=== PATIENT | female | born 1995 ===

== ENCOUNTER 2018-11-26 05:55 | Inpatient (IN) | payer MEDICAID ==
[2018-11-26 06:18] VITALS: BMI 26.9
[2018-11-26] MEDS ORDERED: Lactated Ringer's 1,000 ML IV ONE (06:57)
[2018-11-26] MEDS ORDERED: Lactated Ringer's 1,000 ML IV SCH (07:00)
--- NOTE | 2018-11-26 07:17 | OBHP ---
Datetime: 11/26/2018 06:58 IP Adm Impression: Term, intrauterine ; Active labor; Ruptured Membranes IP Admit Plan: Admit to unit; Initiate labor protocol Admit Comment, IP Provider: TERESA ID [id number] 23 y.o. LMP unsure, KHANG 12/07/18, EGA 38w 3d, SROM 2215 hours 11/25/18, onset of Ctx 0500 ho urs, pain scale 10/10. (+) AFM, denies VB. care: [facility], no issues P Ob: x 2: 2011, male, 6lb; 2012, female, 7lb, both in [facility], no complications. 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 No h/o STIs PMH: denies PSH: denies NKDA Meds: PNV Soc Hx: denies tobacco, illicit drug or EtOH use. With FOB x 5 years; (+) cohabitation. Children i n [facility]. Children in [facility]. Unemployed Fam Hx: Mother alive 48 h/o headaches. Father due to "accident" . No fam h/o cancer P.E.: as above. WD in NAD. Awake, alert, oriented to time, person and place. Pleasant and cooperat glenn Assessment: 23 y.o. P2, 38w 3d, SROM, nearing end of Stage 1 of labor. GBS (-). CAtegory 1 tracing . Clinically stable. Plan: 1) Admit 2) NPO 3) IVFs. 4) Admission labs 5) Continuous EFM 6) Anticipate vaginal delivery - case endorsed to incoming Attending Pelvic Type - PN: Adequate Extremities - PN: Normal Abdomen - PN: Normal Back - PN: Normal Breast - PN: Not Done Lungs - PN: Normal Heart - PN: Normal Thyroid - PN: Not Done Neurologic - PN: Normal HEENT - PN: Normal General - PN: Normal FHR - Baseline A Provider: 135 Contraction Comments Provider: 3 Comments, ACOG Physical Exam: Perinuem: wet SSE: (+) pooling; (+) nitrazine Abdomen: Gravid. Firm with contractions. Fundal height 38 cm All other systems reviewed and are negative Gestation - Est Wks by US: 38w 3d IP Hx Assessment: The History has been Reviewed and is Current EGA AdmitDate IP: 38.3 Vital Signs Provider: Reviewed IP Indication for Induction: Not Applicable IP Chief Complaint: Uterine contractions; Suspected ruptured membranes NICHD Variability Prov Fetus A: Moderate 6-25bpm NICHD Accel Fetus A IP Provider: 15X15 FHR Category Provider Fetus A: Category I NICHD Decel Fetus A IP Provider: None Dilatation, Provider: 8 Effacement, Provider: 90 Station, Provider: 0 Genitourinary Exam: Normal DTRs - PN: Not Done
[2018-11-26] MEDS ORDERED: Oxytocin 30 UNIT in NS 500 ml 30 UNITS/500 ML BAG IV SCH (07:45)
[2018-11-26 07:55] LABS: BASO # 0.1 K/uL (0.0-0.2); BASO % 1.4 % (0.0-2.0); EOS # 0.1 K/uL (0.0-0.7); HEMOGLOBIN 9.7 g/dL (11.0-16.0); LYMPH # 2.3 K/uL (1.0-4.3); MEAN CELL VOLUME 71.9 fL (81.0-99.0); MEAN CORPUSCULAR HEMOGLOBIN 23.9 pg (27.0-31.0); MEAN CORPUSCULAR HGB CONC 33.2 g/dL (33.0-37.0); MEAN PLATELET VOLUME 10.2 fL (7.2-11.7); MONO # 0.5 K/uL (0.0-0.8); MONO % 6.6 % (0.0-10.0); NEUT # 3.9 K/uL (1.8-7.0); NRBC % 0.3 % (0.0-2.0); RBC 4.07 Mil/uL (3.80-5.20); RED CELL DISTRIBUTION WIDTH 16.1 % (11.5-14.5); WHITE BLOOD COUNT 6.8 K/uL (4.8-10.8)
[2018-11-26] MEDS ORDERED: Oxytocin 30 UNIT in NS 500 ml 30 UNITS/500 ML BAG IV ONE (07:57)
[2018-11-26 08:12] LABS: ALB/GLOB RATIO 1.3 (1.0-2.1); ALBUMIN 3.8 g/dL (3.5-5.0); ALT/SGPT 27 U/L (9-52); AST/SGOT 43 U/L (14-36); BLOOD UREA NITROGEN 13 mg/dL (7-17); CALCIUM 8.5 mg/dl (8.6-10.4); GFR NON-AFRICAN AMERICAN > 60
[2018-11-26 08:21] LABS: SQUAMOUS EPITHIAL 1 /hpf (0-5); URINE BILIRUBIN NEGATIVE (NEGATIVE); URINE BLOOD NEGATIVE (NEGATIVE); URINE CLARITY Hazy (Clear); URINE COLOR Yellow (YELLOW); URINE GLUCOSE (UA) NORMAL (Normal); URINE LEUKOCYTE ESTERASE NEG Leu/uL (Negative); URINE PROTEIN NEGATIVE (NEGATIVE); URINE UROBILINOGEN NORMAL mg/dL (0.2-1.0)
[2018-11-26] MEDS ORDERED: Bupivacaine HCl/FentaNYL Cit 100 ML EPI ONE (08:38)
--- NOTE | 2018-11-26 09:14 | OBPN ---
Datetime: 11/26/2018 07:58 IP Progress Impression: Normal progression of labor; Reassuring heart rate; Rupture of membran es IP Informed Consent Obtain: Vaginal Delivery IP Procedures: Sterile Vag Exam IP Progress Plan: Augmentation Membranes, Provider: Ruptured FHR - Baseline A Provider: 130 Gestation - Est Wks by US: 38.3 Presentation-Admit: Vertex IP Progress Note Comment: Patient was seen and examined at bedside in no acute distress SVE: 9cm/80%/-2 Pitocin Aditya t 2mUNITS initiated Anticipate vaginal delivery Requesting an epidural and counseling done and Anesthesia notified All plans and management as per Dr. Bryson Norman, DO, PGY 2 Vital Signs Provider: Reviewed; Within Normal Limits NICHD Accel Fetus A IP Provider: 10X10 FHR Category Provider Fetus A: Category I NICHD Variability Prov Fetus A: Moderate 6-25bpm Dilatation, Provider: 9 Effacement, Provider: 80 Station, Provider: -2 NICHD Decel Fetus A IP Provider: None Datetime: 11/26/2018 06:58 Contraction Comments Provider: 3
[2018-11-26] MEDS ORDERED: Oxycodone/Acetaminophen 5/325 mg Tab PO PRN (11:19)
--- NOTE | 2018-11-26 11:49 | OBPN ---
Datetime: 11/26/2018 10:10 IP Progress Impression: Normal progression of labor IP Procedures: Sterile Vag Exam IP Progress Plan: Anticipate Vaginal Delivery FHR - Baseline A Provider: 120 Gestation - Est Wks by US: 38.3 Presentation-Admit: Vertex IP Progress Note Comment: Patient was seen and examined at bedside in no acute distress SVE: /+1 Patient has sensation of rectal pressure and requesting to push Will start pushing Continue to anticipate vaginal delivery All plans and management discussed with Dr. Bryson Norman DO, PGY 2 Vital Signs Provider: Reviewed; Within Normal Limits NICHD Variability Prov Fetus A: Moderate 6-25bpm Dilatation, Provider: 10 Effacement, Provider: 100 Station, Provider: 1
--- NOTE | 2018-11-26 11:51 | OBDS ---
DELIVERY PERSONNEL Delivery Doctor: Donavon Massey DO Box Annealer: MARQUISE Latham Anesthesiologist: Dr Seo Resident: Dr. Ly MATERNAL INFORMATION Delivery Anesthesia: Epidural Medications in Delivery: pitocin Estimated Blood Loss (ml): 200 Placenta Cultured: No Provider Comments: This is a 23 year old now , who delivered a viable female via over an intact perineum on 11/26/18 at 10:58. Aminotic fluid was clear. Patient had been ruptured sinc e 22:00pm (11/25/18) The infant's head was delivered in a controlled manner presenting in AMIRAH. Loose N uchal cord was noted X1 and was reduced without difficulty. The infant's shoulders and body were deli anthony atraumatically, and bulb syringe was utilized to suction the Naso and Oropharynx The cord was c lamped. The 's was placed on mom's belly and handed to the nursery nurse. Cord blood and cord g ases were collected and sent to lab. An intact placenta with 3VC was delivered with IV pitocin and fu ndal massage. EBL was 200ml. The weighed 7lbs 11oz with APGARS of 9 and 9. Mom and baby are re covering in stable condition. All instrument and sponge counts were correct X2. Attending, Dr. Massey , and present throughtout the procedure. Resident (Kami Norman) and 3rd year medical studeny ( Roberto Kaba) were presents and participated in the delivery. Kami Norman DO, PGY 2 LABOR SUMMARY EDC: 12/07/2018 00:00 No. Babies in Womb: 1 Attempted: No Labor Anesthesia: Epidural LABOR INFORMATION Onset of Labor: 11/25/2018 22:00 Complete Dilatation: 11/26/2018 10:10 Oxytocin: Augmentation Group B Beta Strep: Negative (Annotations: 11/07/2018) Steroids Given: None Reason Steroids Not Administered: Not Applicable MEMBRANES Membranes Rupture Method: Spontaneous Rupture of Membranes: 11/25/2018 22:00 Length of Rupture (hrs): 12.97 Amniotic Fluid Color: Clear Amniotic Fluid Amount: Small Amniotic Fluid Odor: Normal STAGES OF LABOR Stage 1 hrs: 12 Stage 1 min: 10 Stage 2 hrs: 0 Stage 2 min: 48 Stage 3 hrs: 0 Stage 3 min: 5 Total Time in Labor hrs: 13 Total Time in Labor min: 3 VAGINAL DELIVERY Episiotomy: None Laceration Extension: N/A Laceration Type: None Laceration Repair: Not Applicable Initial Vag Sponge Count: 10 Final Vag Sponge Count: 10 Initial Vag Sharps Count: 0 Final Vag Sharps Count: 0 Sponge Count Correct: Yes Sharps Count Correct: N/A BABY A INFORMATION Infant Delivery Date/Time: 11/26/2018 10:58 Method of Delivery: Vaginal Born in Route : No : N/A Forceps: N/A Vacuum Extraction: N/A Shoulder Dystocia : No SHOULDER DYSTOCIA BABY A Infant Delivery Date/Time: 11/26/2018 10:58 PRESENTATION/POSITION BABY A Presentation: Cephalic Cephalic Presentation: Vertex Breech Presentation: N/A PLACENTA INFORMATION BABY A Placenta Delivery Time : 11/26/2018 11:03 Placenta Method of Delivery: Spontaneous Placenta Status: Delivered SCORES BABY A Heart Rate 1 min: >100 bpm Resp Effort 1 min: Good Cry Reflex Irritability 1 min: Cough or Sneeze or Pulls Away Muscle Tone 1 min: Active Motion Color 1 min: Body [place], Extremities Blue Resuscitation Effort 1 min: Tactile Stimulation SCORE 1 MIN: 9 Heart Rate 5 min: >100 bpm Resp Effort 5 min: Good Cry Reflex Irritability 5 min: Cough or Sneeze or Pulls Away Muscle Tone 5 min: Active Motion Color 5 min: Body [place], Extremities Blue Resuscitation Effort 5 min: Tactile Stimulation SCORE 5 MIN: 9 INFORMATION BABY A Gestational Age at Delivery: 38.3 Gestational Status: Term Infant Outcome : Liveborn Infant Condition : Stable Sex: Female IDENTIFICATION/MEDS BABY A ID Band Number: [id number] ID Band Location: Left Leg; Left Arm Sensor Applied: Yes Sensor Number: [id number] Sensor Location : Cord Clamp Vitamin K Given : Aquamephyton 0.5 mg IM; Left Thigh Erythromycin Given: Given Both Eyes WEIGHT/LENGTH BABY A Infant Birthweight (gms): 3475 Weight (lb): 7 Weight (oz): 11 Length Inches: 19.50 Length cms: 49.5 CORD INFORMATION BABY A No. Cord Vessels: 3 Nuchal Cord : Around Neck x1, Loose Cord Blood Taken: Yes Infant Suction: Mouth; Nose ASSESSMENT BABY A Infant Complications: None Physical Findings at Delivery: Within Normal Limits Infant Respirations: Appears Normal Office Machine Mechanic/ALS Called : No Infant Care By: MARQUISE Hollingsworth Transferred To: Remains with Mother
[2018-11-26] MEDS: Benzocaine/Menthol 20%-0.5% Topical Spray (60 ml) TOP PRN (20:51)
[2018-11-27 08:15] LABS: BASO % 0.4 % (0.0-2.0); EOS # 0.1 K/uL (0.0-0.7); EOS % 1.1 % (0.0-4.0); HEMOGLOBIN 8.2 g/dL (11.0-16.0); LYMPH # 2.5 K/uL (1.0-4.3); LYMPH % 27.6 % (20.0-40.0); MEAN CELL VOLUME 71.6 fL (81.0-99.0); MEAN CORPUSCULAR HEMOGLOBIN 23.8 pg (27.0-31.0); MEAN CORPUSCULAR HGB CONC 33.3 g/dL (33.0-37.0); MEAN PLATELET VOLUME 9.4 fL (7.2-11.7); MONO # 0.6 K/uL (0.0-0.8); MONO % 6.1 % (0.0-10.0); NEUT # 5.9 K/uL (1.8-7.0); NEUT % 64.8 % (50.0-75.0); NRBC % 0.1 % (0.0-2.0); RBC 3.45 Mil/uL (3.80-5.20); RED CELL DISTRIBUTION WIDTH 16.2 % (11.5-14.5); WHITE BLOOD COUNT 9.1 K/uL (4.8-10.8)
[2018-11-27] MEDS: Multiple Vitamins Tab PO SCH (10:27)
[2018-11-27] MEDS: Benzocaine/Menthol 20%-0.5% Topical Spray (60 ml) TOP PRN ×2 (12:20→18:07)
--- NOTE | 2018-11-27 22:40 | OBPPN ---
Datetime: 11/27/2018 10:27 PP Pain Prov: Within normal limits PP Nausea Prov: Denies PP Flatus Prov: Yes PP BM Prov: Yes PP Heart Prov: Normal PP Lungs Prov: Normal PP Abdomen/Uterus Prov: Normal PP Extremities Prov: Normal PP C/S Incision Prov: Not Applicable PP Progress Prov: Normal PP Impression Prov: Normal progression PP Plan Prov: Continue present management PP Progress Note Prov: 23F s/p without complications and EBL 200mL, PPD #1. She was seen an d examined at bedside. No acute overnight events. She states her pain is well controlled with ibuprof en. She is ambulating and eating well. She had a BM yesterday, and is voiding well. She admits to vitaly e vaginal bleeding, using 2 pads within 3 hrs. She is only, with normal progress. She d enies fever/chills, CP, SOB, nausea, vomiting, constipation, diarrhea, or calf pain. Objective Vitals Tmax 98.8, BP 95/56, HR 63 Physical Exam: Gen: well appearing, NAD Heart: normal s1 s2, RRR, no murmurs Lung: CTA bilateral, no wheezes/rhonchi/rales Abdomen: nontender, fundal height 1-2 finger breadths below level of umbilicus Extr: no swelling or tenderness Labs: Hgb 8.2 Hct 24.7 Assessment/Plan 23F s/p , PPD#1, with chronic anemia, who is afebrile with hemodynamically stable -continue to monitor H/H -po ferrous sulfate BID -continue oral hydration and ambulation IP PP Procedures: None Vital Signs Provider PP: Reviewed; Within Normal Limits
[2018-11-28 00:14] VITALS: O2SAT 98
[2018-11-28] MEDS: Multiple Vitamins Tab PO SCH (09:08)
[2018-11-28 10:59] VITALS: BP 103/62; PULSE 58; RESP 18; TEMP 98.9
--- NOTE | 2018-11-28 19:32 | OBPPN ---
Datetime: 11/28/2018 07:41 PP Pain Prov: Within normal limits PP Nausea Prov: Denies PP Flatus Prov: Yes PP BM Prov: Yes PP Breasts Prov: Normal PP Heart Prov: Normal PP Lungs Prov: Normal PP Abdomen/Uterus Prov: Normal PP Lochia Prov: Normal PP Vulva/Perineum Prov: Normal PP CVA Tenderness Prov: Normal PP Extremities Prov: Normal PP C/S Incision Prov: Not Applicable PP Progress Prov: Normal PP Impression Prov: Normal progression PP Plan Prov: Continue present management; Discharge PP Progress Note Prov: 23F s/p , PPD #2. Patient was seen and examined at bedside. No acute overnight events. She states her pain is well controlled on ibuprofen. She is voiding, passing gas, a nd having regular BMs. She is ambulating and hydrating well. She is without problems. S he reports mild vaginal bleeding, using 3 pads in the past day. She denies fever, chills, dizziness, nausea, vomiting, constipation, or calf pain. Vitals: T 97.4 BP 97/64 HR 65 Physical Exam: Assessment/Plan 23F s/p , PPD#2 who is hemodynamically stable -continue po iron supplement, ferrous sulfate 325mg -plan for discharge IP PP Procedures: None Vital Signs Provider PP: Reviewed
--- NOTE | 2018-11-28 19:34 | OBDCSUM ---
Datetime: 11/28/2018 08:26 Discharged to, Provider: Home Follow up at, Provider: [facility] Disch Instr Activity: Normal activity Disch Instr Diet: Regular Discharge Instructions, Provider: Routine instructions given Discharge Diagnosis, Provider: Term Delivered Discharge Time: 11/28/2018 17:30 Follow up in weeks, Provider: 6 weeks Disch Referrals: None Contraception discussed, Prov: Yes Disch Activity Restrictions: No lifting; Minimize stair-climbing; No sexual activity; Nothing in vag regino - [place], tampons, douche Discharge Comment, Provider: 23F s/p , PPD #2. Patient was seen and examined at bedside. No acute overnight events. She states her pain is well controlled on ibuprofen. She is voiding, passing gas, and having regular BMs. She is ambulating and hydrating well. She is without probl ems. She reports mild vaginal bleeding, using 3 pads in the past day. She denies fever, chills, dizzi ness, nausea, vomiting, constipation, or calf pain. Vitals: T 97.4 BP 97/64 HR 65 Physical Exam: Assessment/Plan 23F s/p , PPD#2 who is hemodynamically stable -continue po iron supplement, ferrous sulfate 325mg -D/C home with instructions and Rx for Motrin. -Satisfactory condition and recovery Contraception after Delivery: Undecided
== END 2018-11-28 17:30 | disposition home or self-care (01) | DRG 560 ==
LOC: C.EROB 05:55 → C.4D 06:58 → C.4M 12:15
PROVIDERS: ADMIT Obstetrics & Gynecology; ATTEND Obstetrics & Gynecology
PROC: 10E0XZZ Delivery of Products of Conception, External Approach (ICD-10-PCS; principal; 2018-11-26)
DX: O99.02 Anemia complicating childbirth (principal); D64.9 Anemia, unspecified; O69.81X0 Labor and delivery complicated by cord around neck, without compression, not applicable or unspecified; Z3A.38 38 weeks gestation of pregnancy; Z37.0 Single live birth